=== PATIENT | female | born 1990 | race Caucasian/White ===

== ENCOUNTER 2024-04-24 08:51 | Outpatient (AMB) | payer OTHER, SELFPAY ==
--- NOTE | 2024-04-24 08:52 | A.OFFPC_ITS ---
Vital Signs 04/24/24 09:01 Height 5 ft 5.55 in Weight 198 lb BMI 32.4 BP 102/68 Blood Pressure Location Rt brachial Position Sitting Respiration 14 Pulse 75 Pulse Source Pulse Oximeter Temp 98.1 F Temp Source Oral Pulse Oximetry (%) 98 Oxygen Delivery Method Room Air Intake Visit Reasons: Establish Care Intake Note: New patient visit. 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 Has not had a pcp in years. She moved around a lot initially because her hus band was in the . They have since and it has been 2 years and now she has settled in [place]. Endo: She follows with Dr. Clark, endocrinology in [facility]. 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 She states that they are still watching one area on the right lymph node (states she does not know exactly) but, going for ultrasounds q 6 months and labs. Currently on levothyroxine 150 mcg. Last TSH was WNL. States that it was last checked a few months ago. Psych: States her anxiety is well-controlled with buspirone 5 mg twice a day. She follows with psychiatry in [place]. Master Ocean: Following in [facility] and has a hx of abnormal paps and would like to see someone locally. Family history: maternal grandfather had a cancer (unknown type). 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 Abnormal Papanicolaou smear of cervix Generalized anxiety disorder Surgical History (Updated 04/24/24 @ 09:15 by Jessie Collins PA-C) H/O thyroidectomy Family History (Updated 04/24/24 @ 09:37 by Eva Weiss [facility]) Father HTN (hypertension) Hypercholesteremia Maternal Grandmother Cardiovascular disease Mother Thyroid disorder Social History (Updated 04/24/24 @ 09:01 by Eva Weiss [facility]) Housing: House Patient Tobacco Use Status: Never used Tobacco e-Cigarette/Vaping Use: Never Used Second Hand Smoke Exposure: No Substance Use Type: Marijuana service: No Current occupational status: employed Current occupational exposures/hazards: No Cognitive needs: No Hearing needs: No Vision needs: No Questionnaire PHQ-9 Over the last 2 weeks, how often have you been bothered by any of the following problems? 1. Little interest or pleasure in doing things: not at all 2. Feeling down, depressed, or hopeless: not at all 3. Trouble falling or staying asleep, or sleeping too much: not at all 4. Feeling tired or having little energy: not at all 5. Poor appetite or overeating: not at all 6. Feeling bad about yourself - or that you are a failure or have let yourself or your family down: not at all 7. Trouble concentrating on things, such as reading the newspaper or watching television: not at all 8. Moving or speaking so slowly that other people could have noticed. Or the opposite - being so fidgety or restless that you have been moving around a lot more than usual: not at all 9. Thoughts that you would be better off or of hurting yourself in some way: not at all Total score: 0 Depression Screening Interpretation: Negative Depression Screening Done: Yes 24945 - PHQ-9 Billing: Yes Source: Developed by Drs. Stepan Thayer, Jolene Chen, Galo Leavitt and colleagues, with an educational zena from [employer]. Thrive Questionnaire Date Thrive assessed: 04/24/24 I am a: Patient What is your living situation today?: I have a steady place to live Within the past 12 months, did the food you bought not last and you didn't have the money to get more?: Never true Within the past 12 months, did you worry whether your food would run out before you got money to buy more?: Never true Do you have trouble paying for medicines?: No Do you have trouble getting transportation to medical appointments?: No Do you have trouble paying your heating and electricity bill?: No Do you have trouble taking care of your child, family member or friend?: No Do you have trouble with day-to-day activities such as bathing, preparing meals, shopping, managing finances, etc.?: No Are you currently unemployed and looking for a job?: No Are you interested in more education?: No Please select the resources that you would like help with: None Currently or been in a relationship where the following occur: No concerns reported THRIVE Score: 0 AUDIT C Alcohol Use Questionnaire (AUDIT-C) 1. How often do you have a drink containing alcohol?: 2-3 times a week 2. How many drinks containing alcohol do you have on a typical day when you are drinking?: 5 or 6 3. How often do you have six or more drinks on one occasion?: Weekly Total Score: 8 Score Reviewed/Action Taken: Yes ROSALIE-7 AMB Questionnaire ROSALIE-7 Date ROSALIE - 7 assessed: 04/24/24 Feeling nervous, anxious, or on edge: 1 = Several days Not being able to stop or control worryin = Not at all Worrying too much about different things: 1 = Several days Trouble relaxin = Not at all Being so restless that it is hard to sit still: 0 = Not at all Becoming easily annoyed or irritable: 0 = Not at all Feeling afraid as if something awful might happen: 1 = Several days Total ROSALIE-7 score (0-4 normal; 5-9 mild; 10-14 moderate; 15-21 severe): 3 Source: Developed by Drs. Stepan Thayer, Jolene Chen, Galo Leavitt and colleagues, with an educational zena from [employer]. ROSALIE-7 Assessment Billing ROSALIE-7 Assessment Tool: ROSALIE-7 Assessment 84107 Physical exam (Primary Care) Vital Signs: Last Vital Signs Temp 98.1 F 04/24/24 09:01 Pulse 75 04/24/24 09:01 Resp 14 04/24/24 09:01 BP 102/68 04/24/24 09:01 Pulse Ox 98 04/24/24 09:01 Oxygen Delivery Method Room Air 04/24/24 09:01 BMI result Body Mass Index 32.4 Tobacco/Smoking Status: Tobacco use Status Tobacco use date assessed 04/24/24 04/24/24 09:04 Patient Tobacco Use Status Never used Tobacco 04/24/24 09:04 e-Cigarette/Vaping Use Never Used 04/24/24 09:01 PHQ-9: PHQ-9 Score PHQ-9: Total score 0 04/24/24 09:38 Depression Screening Interpretation: Negative Thrive Assessment: Date of Thrive Assessment Date Thrive assessed 04/24/24 04/24/24 09:38 Currently or been in a relationship where the following occur: No concerns reported Const Orientation/consciousness: patient oriented x3 HENMT Ears: hearing grossly normal bilaterally Neck Thyroid: Thyroid normal Lymphatic: no lymphadenopathy noted Resp Auscultation: clear to auscultation bilaterally Cardio Rate: regular rate Rhythm: regular rhythm Heart sounds: S1 normal heart sound present and S2 normal heart sound present GI Inspection: Yes normal to inspection Palpation (GI): Soft to palpation and Other GI palpation findings present (nontender, no cva tenderness) Auscultation: normoactive bowel sounds Rectal Exam - Female: deferred Skin General skin exam: no rashes or lesions noted Neuro General: patient oriented x3, gait normal and no focal motor deficits Assessment and Plan Assessment & Plan (1) Generalized anxiety disorder: Code(s): F41.1 - Generalized anxiety disorder Plan: Continue following with Psychiatry. Doing well on buspirone. (2) Hypothyroid: Code(s): E03.9 - Hypothyroidism, unspecified Qualifiers: Hypothyroidism type: postoperative Qualified Code(s): E89.0 - Pos tprocedural hypothyroidism Plan: Following with endocrinology. Prefers to keep her button bradder. Plan Labs ordered today. 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 Orders: Orders Comprehensive [place]. Panel Fast Today B97.7 - Papillomavirus as the cause of diseases classified elsewhere, C73 - Malignant neoplasm of thyroid gland, E03.9 - Hypothyroidism, unspecified, E89.0 - Postprocedural hypothyroidism, F41.1 - Generalized anxiety disorder, R87.619 - Unspecified abnormal cytological findings in specimens from cervix uteri Lipid Panel Today B97.7 - Papillomavirus as the cause of diseases classified elsewhere, C73 - Malignant neoplasm of thyroid gland, E03.9 - Hypothyroidism, unspecified, E89.0 - Postprocedural hypothyroidism, F41.1 - Generalized anxiety disorder, R87.619 - Unspecified abnormal cytological findings in specimens from cervix uteri Magnesium Today B97.7 - Papillomavirus as the cause of diseases classified elsewhere, C73 - Malignant neoplasm of thyroid gland, E03.9 - Hypothyroidism, unspecified, E89.0 - Postprocedural hypothyroidism, F41.1 - Generalized anxiety disorder, R87.619 - Unspecified abnormal cytological findings in specimens from cervix uteri Complete Blood Count Auto Diff Today B97.7 - Papillomavirus as the cause of diseases classified elsewhere, C73 - Malignant neoplasm of thyroid gland, E03.9 - Hypothyroidism, unspecified, E89.0 - Postprocedural hypothyroidism, F41.1 - Generalized anxiety disorder, R87.619 - Unspecified abnormal cytological findings in specimens from cervix uteri Vitamin B12 and Folate Today B97.7 - Papillomavirus as the cause of diseases classified elsewhere, C73 - Malignant neoplasm of thyroid gland, E03.9 - Hypothyroidism, unspecified, E89.0 - Postprocedural hypothyroidism, F41.1 - Generalized anxiety disorder, R87.619 - Unspecified abnormal cytological findings in specimens from cervix uteri Vitamin D 1,25 dihydroxy Today B97.7 - Papillomavirus as the cause of diseases classified elsewhere, C73 - Malignant neoplasm of thyroid gland, E03.9 - Hypothyroidism, unspecified, E89.0 - Postprocedural hypothyroidism, F41.1 - Generalized anxiety disorder, R87.619 - Unspecified abnormal cytological findings in specimens from cervix uteri Referrals GRAVEL ROOFER Referral Z01.419 - Encounter for gynecological examination (general) (routine) without abnormal findings Coding Level of Care Code New Pt Level 3 (52404) Complex EM visit Add On G2211 Diagnoses Generalized anxiety disorder F41.1 Postoperative hypothyroidism E89.0 Hypothyroidism type: postoperative Additional Codes ROSALIE-7 Assessment Billing - ROSALIE-7 Assessment Tool: ROSALIE-7 Assessment 88021 ([id number])
[2024-04-24 09:01] VITALS: BP 102/68; PULSE 75; RESP 14; TEMP 36.7; O2SAT 98; BMI 32.4
== END 2024-04-24 09:26 | disposition home or self-care (01) ==
PROVIDERS: PCP Physician Assistant; Visit Provider Physician Assistant
DX: F41.1 Generalized anxiety disorder (principal); E89.0 Postprocedural hypothyroidism
CPT/HCPCS: 96127; 99203; G2211

== ENCOUNTER 2024-04-26 08:01 | Outpatient (REF) | payer OTHER, SELFPAY ==
[2024-04-26 11:06] LABS: MANUAL DIFF FLAG NO
[2024-04-26 11:22] LABS: Basophils Absolute Auto 0.1 X10*3/uL (0.0-0.2); Basophils Percent Auto 0.8 % (0-2); Eosinophils Absolute Auto 0.1 X10*3/uL (0.0-0.4); Eosinophils Percent Auto 2.3 % (0-4); Hematocrit 41.1 % (37.0-47.0); Hemoglobin 14.2 g/dl (12.0-16.0); Imm Gran Abs Auto 0.03 X10*3/uL (0.00-0.03); Imm Gran Pct Auto 0.5 % (0.0-0.4); Lymphocytes Absolute Auto 1.2 X10*3/uL (1.2-4.9); Lymphocytes Percent Auto 20.2 % (20-40); Mean Corpuscular HGB Conc 34.5 g/dl (31.0-35.0); Mean Corpuscular Hemoglobin 30.1 pg (27.0-33.0); Mean Corpuscular Volume 87.3 fL (80.0-98.0); Mean Platelet Volume 10.1 fL (9.4-12.3); Monocytes Absolute Auto 0.4 X10*3/uL (0.1-1.2); Monocytes Percent Auto 6.6 % (2-11); Neutrophils Absolute Auto 4.2 x10*3/uL (2.0-8.3); Neutrophils Percent Auto 69.6 % (45-73); Platelet Count 344 X10*3/uL (160-400); Red Blood Count 4.71 X10*6/uL (4.20-5.50); Red Cell Distribution Width 12.5 % (11.0-16.0)
[2024-04-26 11:34] LABS: Alanine Aminotransferase 13 U/L (0-31); Albumin Level 4.4 g/dL (3.5-5.0); Alkaline Phosphatase 41 U/L (39-117); Anion Gap 11 (12-20); Aspartate Amino Transferase 15 U/L (5-31); Bilirubin Total 0.5 mg/dL (0.0-1.0); Blood Urea Nitrogen 12 mg/dL (9-16); Calcium 9.6 mg/dL (8.4-10.2); Carbon Dioxide 27 mmol/L (22-29); Chloride 107 mmol/L (96-108); Cholesterol 171 mg/dL (<200); Estimated Glomerular Filt Rate > 60; Glucose Fasting 87 mg/dL (60-99); HDL Cholesterol 47 mg/dL (>40); LDL Cholesterol Calculated 111 mg/dL (<100); Magnesium 2.1 mg/dL (1.6-2.6); Potassium 4.1 mmol/L (3.3-5.1); Sodium 141 mmol/L (135-145); Total Protein 7.3 g/dL (6.5-8.0); Triglycerides 68 mg/dL (<150)
[2024-04-26 12:09] LABS: Folate 5.5 ng/mL (> or = 4.0); Vitamin B12 365 pg/mL (200-900)
[2024-05-02 02:44] LABS: VITAMIN D (1,25 OH) D3 35 pg/mL; Vit D (1,25-Dihydroxy) Total 35 pg/mL (18-72); Vitamin D (1,25 OH) D2 <8 pg/mL
== END 2024-04-26 08:02 | disposition home or self-care (01) ==
LOC: HO.WFDLDS 08:01
PROVIDERS: Visit Provider Physician Assistant
DX: F41.1 Generalized anxiety disorder (principal); R87.619 Unspecified abnormal cytological findings in specimens from cervix uteri; B97.7 Papillomavirus as the cause of diseases classified elsewhere; C73 Malignant neoplasm of thyroid gland; E89.0 Postprocedural hypothyroidism
CPT/HCPCS: 36415; 80053; 80061; 82607; 82652; 82746; 83735; 85025

== ENCOUNTER 2024-10-22 08:00 | Outpatient (REF) | payer OTHER, SELFPAY ==
--- OUTSIDE RECORDS SUMMARY | 2024-10-22 08:06 | XMS_ITS ---
Author Name [facility] Organization Unknown History of Medication Use Medication Directions Dispensed Refills Start Date End Date Stat buspirone 7.5 mg tablet TAKE 1 TABLET BY MOUTH TWICE DAILY active liothyronine 5 mcg tablet 05/24/2024 completed alprazolam 0.25 mg tablet TAKE 1-2 TABLETS BY MOUTH DAILY NEEDED 02/27/2023 completed trazodone 50 mg tablet TAKE 1 TABLET BY MOUTH 30 MINUTES BEFORE BEDTIME 02/27/2023 completed benzonatate 100 mg capsule TAKE 1 CAPSULE BY MOUTH THREE TIMES DAILY FOR 7 DAYS NEEDED FOR COUGH 05/24/2024 completed citalopram 40 mg tablet TK 1 T PO QD TK 1 T PO QD com pleted aripiprazole 2 mg tablet TAKE 1 TABLET BY MOUTH DAILY TAKE 1 TABLET BY MOUTH DAILY completed Vitamin D3 125 mcg (5,000 unit) tablet TAKE 1 TABLET BY MOUTH DAILY TAKE 1 TABLET BY MOUTH DAILY completed alprazolam 0.25 mg tablet TAKE 1-2 TABLETS BY MOUTH DAILY NEEDED TAKE 1-2 TABLETS BY MOUTH DAILY NEEDED completed aripiprazole 2 mg tablet TAKE 1 TABLET BY MOUTH DAILY 02/27/2023 completed [place] Fe 09/23 (28) 1 mg-20 mcg (21)/75 mg (7) tablet Take 1 tablet every day by oral route. Take 1 tablet every day by oral route. completed cetirizine 10 mg tablet TAKE 1 TABLET BY MOUTH EVERY DAY 10/20/2023 completed ketoconazole 2 % topical cream APPLY TOPICALLY TO THE AFFECTED AREA EVERY DAY FOR 14 DAYS 10/20/2023 completed Problems Problem Status Onset Date Problem Type Date of Resoluti on Source Malignant tumor of thyroid gland active 2020-02-19 ProblemAct [facility] Anxiety active 2021-07-16 ProblemAct [facility] Post-operative hypothyroidism (disorder) active ProblemAct [facility] Tinnitus (finding) active ProblemAct [facility] Strain of muscle of lower limb (disorder) active ProblemAct [facility] Dizziness (finding) active ProblemAct [facility] Occipital lymphadenopathy (disorder) active ProblemAct [facility] Overweight (finding) active ProblemAct [facility] Anxiety disorder (disorder) active ProblemAct [facility] Papillary thyroid carcinoma (disorder) active ProblemAct [facility] Cervical lymphadenopathy (disorder) active ProblemAct [facility] Discharge from nipple (disorder) active ProblemAct [facility] Menopausal flushing (finding) active ProblemAct [facility] Immunizations Vaccine Date Source Lot Number Status COVID-19, mRNA, LNP-S, PF, 30 mcg/0.3 mL dose 06/10/2021 C [facility] [id number] completed COVID-19, mRNA, LNP-S, PF, 30 mcg/0.3 mL dose 05/20/2021 C [facility] [id number] completed
--- OUTSIDE RECORDS SUMMARY | 2024-10-22 08:06 | XMS_ITS | Data Portability ---
Author Organization [place] - [facility], [facility] Address [address] [place] [address] Assessment No assessment recorded. Plan of Treatment Reminders Order Date Submit Date Provider Last Modified By Organization Details Last Modified Time Details Appointments None recorded. Lab pap, IG + reflex HPV 2014 015 TRACY Not available 5 10:46:11 urinalysis, dipstick 2014 aylin liz In-Office Order, Internal Use Only DO Not Attach Compendium DO Not Attach Compendium, Do Not Delete/merge, [address] 5 14:56:07 CT + NG DNA, PCR, unspecified specimen 2014 TRACY Not available 5 15:07:52 Referral None recorded. Procedures None recorded. Surgeries None recorded. Imaging None recorded. Medication Orders Sprintec (28) 0.25 mg-35 mcg tablet 2014 aylin liz [facility], [address] [place], [address], 5 08:12:49 Patient TargetsNo targets recorded. Patient Instructions Encounter Date Encounter Id Patient Instructions Last Modified By Organization Details Last Modified Time 07/03/2015 [id number] control counseling [email or web address] Not available 09/17/2015 15:57:38 sexually transmitted disease education [email or web address] Not available 09/17/2015 15:57:38 Reason for Referral None Reported. Results Created Date Observation Date Name Description Value Unit Range Abnormal Flag Note LastModifiedBy Organization Detail LastModifiedTime 07/03/20 15 07/06/2015 pap, IG + refle x HPV report abnormal GYNEC OLOGI NILESH CYTOL OGY REPOR T THINP REP PAP TEST WITH HPV REFLE X SPECI MEN ADEQU ACY: SATIS FACTO RY FOR EVALU ATION ; ENDOC ERVIC AL/TR ANSFO RMATI ON ZONE COMPO NENT ABSEN T/INS UFFIC IENT. INTER PRETA TION: NEGAT ERIC FOR INTRA EPITH ELIAL LESIO N OR MALIG DORON . FUNGA L ORGAN ISMS MORPH OLOGI RASHEEDA CONSI STENT WITH CLARISSA DA SPECI ES. (dept .cyto ) Elect jasecleveland villar Dania d Out By: NELA LEONEED, CT( CP) CLINI NILESH INFOR MATIO N: LMP: NI Sourc e CERVI X/END OCERV IX Numbe r of vials /slid es submi tted 1 Diagn osis / ICD CODE Z12.4 Hyste recto my N/A Abnor mal Pap Date NI Autom ated presc reeni ng of all liqui d based speci mens is perfo rmed by the ThinP rep Imagi ng Syste m, ivanes s other [place] d. The Pap test is a scree erica test with an inher ent false negat eric rate. Testi ng perfo rmed at [facility] , [address] [place] [address] CLIA [id number] CL-PO [id number]. Not Available [facility] [address] [place], [address], 07/06/2015 10:46:11 07/03/20 15 07/06/2015 CT + NG DNA, PCR, unspe cifie d speci men source cervix Not Available [facility] [address] [place], [address], 07/06/2015 15:07:52 07/03/20 15 07/06/2015 CT + NG DNA, PCR, unspe cifie d speci men chlamydia by DNA Negati ve negati ve Not Available [facility] [address] [place], [address], 07/06/2015 15:07:52 07/03/20 15 07/06/2015 CT + NG DNA, PCR, unspe cifie d speci men GC by DNA Negati ve negati ve Not FDA appro alexandra for GC/Ch lamyd ia in femal e urine speci mens. Test valid ated by [facility] for detec ting GC/Ch lamyd ia from this [facility]. Not Available [facility] [address] [facility], [place], [address], 07/06/2015 15:07:52 Result Notes None recorded. Problems Name Problem SNOMED Code Status Onset Date Resolution Date Notes Provider Name and Address Organization Details Recorded Time Vaginitis and vulvovaginiti s Active 2011 Not Available [facility] 5 19:08:58 Anxiety state 741550530 Active 2011 Not Available [facility] 5 19:08:58 Problem Notes None recorded. Procedures Surgical History Date Name Laterality Status Provider Name and Address Organization Details Recorded Time 5 Date of Last Pap Smear completed Berto Bang [facility] 07/06/2016 11:52:20 5 [id number] completed NAFISA LUU MD 175 [facility], [address] [place] [address], [address] [place] [address], [facility] 07/03/2015 14:54:07 5 [id number] completed NAFISA LUU MD 175 [facility], [address] [place] [address], [id number], [facility] 07/03/2015 14:54:07 5 [id number] completed NAFISA LUU MD 175 [facility], [address] [place] [address], [phone], [facility] 07/03/2015 14:54:07 5 [id number] completed NAFISA LUU MD 175 [facility], [address] [place] [address], [phone], [facility] 07/03/2015 14:54:07 5 [id number] completed NAFISA LUU MD [address] [facility], [address] [place], [address], [facility] 07/03/2015 14:54:07 5 [id number] completed NAFISA LUU MD [address] [facility], [address] [facility], [place], [address], [facility] 07/03/2015 14:54:07 Thyroid Surgery completed Eunice Pires [facility] 07/03/2015 14:40:57 Imaging Results None recorded. Procedure Notes None recorded. Medical Equipment None Reported. Allergies No known drug allergies Medications Name Sig Start Date Stop Date Status Note LastModified by Organization Details LastModified Time bupropion HCl SR 150 mg tablet,12 hr sustained-relea se active Not Available Not Available Not Available levothyroxine 137 mcg tablet active Not Available Not Availab le Not Available citalopram 10 mg tablet active Not Available Not Available No t Available TobraDex 0.3 %-0.1 % eye ointment active Not Available Not Available Not Available levothyroxine 150 mcg tablet active Not Available Not Availab le Not Available mometasone 0.1 % topical ointment active Not Available Not Available Not Available sertraline 50 mg tablet active Not Available Not Available No t Available Ziana 1.2 %-0.025 % topical gel active Not Available Not Available Not Available tretinoin 0.05 % topical gel active Not Available Not Availabl e Not Available Solodyn 80 mg tablet,extended release active Not Available Not Available Not Available Estarylla 0.25 mg-35 mcg tablet TAKE 1 TABLET BY MOUTH ONCE DAILY active Not Available Not Available No t Available Onexton 1.2 % (1 % base)-3.75 % topical gel active Not Available Not Availabl e Not Available Vitals Date Recorded Body height Body mass index (BMI) Body weight Systolic blood pressure Diastolic blood pressure Provider Name and Address Organization Details Last Updated DateTime 07/03/2015 167.64 cm 28.4 kg/m2 62349.25 712 g 122 mm[Hg] 67 mm[Hg] Eunice [place] [facility] 5 14:42:12 Social History None recorded. Functional Status None recorded. Mental Status None recorded. Family History Relationship Description Onset Age of this Age Resolved Age Notes LastModified by Organization Details LastModified Time Maternal Aunt Carcinoma of breast great aunt [email or web address] Not available 07/03/2015 14:41:25 Medical History Condition Response Headaches/Migraines Y Anxiety Disorder Y Thyroid Problems Y Gynecological History Statement/Question Response Date of Last Pap Smear 07/06/2015 Current Control Method BCPs Obstetrics History GPAL:G 0 P 0 0 0 0 Past Encounters Encounter ID Performer Location Encounter Start Date Encounter Closed Date Diagnosis/Indication Diagnosis SNOMED-CT Code Diagnosis ICD10 Code Diagnosis Note [id number] [id number] [address] [place] [address] 06/23/2012 00:00:00 [id number] Nancykatia Cortes [address] [place] [address] 07/03/2015 14:22:28 07/03/2015 14:57:34 Gynecologic examination 10027414 Z12.4 Venereal d isease screening 903935778 Z11.3 Health Concerns Section Related Observation LastModified by Organization Detai ls LastModified Time None Recorded Concern Status LastModified by Organization Details LastModified Time None Recorded Advance Directives Directive None Recorded Payers Encounter Date Sequence Insurance Name Policy Number Policy Youssef Covered Member ID Youssef Member ID Guarantor Name 07/03/2015 1 [employer] - CHOICE (POS II) [id number] Carmen Huffman [id number] Uyen Huffman OBGyn Episode No OBEpisode recorded.
[2024-10-22 10:39] LABS: TSH reflex Free T4 0.38 uIU/mL (0.32-4.0)
[2024-10-23 09:18] LABS: Thyroglobulin 0.7 ng/mL
== END 2024-10-22 08:01 | disposition home or self-care (01) ==
LOC: HO.HMGCLDS 08:00
PROVIDERS: Visit Provider Internal Medicine Endocrinology, Diabetes & Metabolism
DX: C37 Malignant neoplasm of thymus (principal); E89.0 Postprocedural hypothyroidism
CPT/HCPCS: 36415; 84432; 84443